=== PATIENT | male | born 1970 | race Caucasian/White ===

== ENCOUNTER 2021-09-29 10:45 | Day surgery (SDC) | payer MEDICARE ==
[2021-09-29] MEDS ORDERED: Marcaine Mpf 0.5% Vial 30 Ml IJ ONE (10:46)
[2021-09-29] MEDS ORDERED: XYLOCAINE-MPF 1% 5ML SDV IJ ONE (10:46)
[2021-09-29] MEDS ORDERED: Depo-Medrol 40 MG/ML IM ONE (10:46)
[2021-09-29] MEDS ORDERED: Lactated Ringers 1,000 ML IV ONE (12:37)
--- NOTE | 2021-09-29 13:16 | XRAY ---
Indication: Right hip injection. Intraoperative fluoroscopy provided for 23 seconds. Single digital spot image submitted for interpretation demonstrate needle tip lateral to the right femur neck. Small amount of contrast injected for needle tip placement. Correlate with intraoperative findings/report.
--- NOTE | 2021-09-29 15:25 | XRAY ---
23 seconds fluoroscopy time in surgery for intra-articular injection of the right hip.
== END 2021-09-29 12:55 | disposition home or self-care (01) ==
LOC: SDC-PAIN 10:45
PROVIDERS: ATTEND Psychiatry & Neurology Pain Medicine
DX: M16.11 Unilateral primary osteoarthritis, right hip (principal); E11.9 Type 2 diabetes mellitus without complications; Z79.899 Other long term (current) drug therapy
CPT/HCPCS: 20610; 73501; 77002; 82947; J1030; Q9966

== ENCOUNTER 2021-10-27 08:39 | Day surgery (SDC) | payer MEDICARE ==
[2021-10-27] MEDS ORDERED: Marcaine Mpf 0.5% Vial 30 Ml IJ ONE (08:40)
[2021-10-27] MEDS ORDERED: XYLOCAINE-MPF 1% 5ML SDV IJ ONE (08:40)
[2021-10-27] MEDS ORDERED: Depo-Medrol 40 MG/ML IM ONE (08:40)
--- NOTE | 2021-10-27 11:31 | XRAY ---
Indication: Right SI joint injection. Intraoperative fluoroscopy provided for 8 seconds. 2 digital spot image submitted for interpretation demonstrates posterior needle tip projecting over the inferior right SI joint. Correlate with intraoperative findings/report.
--- NOTE | 2021-10-27 14:09 | XRAY ---
8 seconds of fluoroscopy was used in surgery for a right SI joint injection.
== END 2021-10-27 09:55 | disposition home or self-care (01) ==
LOC: SDC-PAIN 08:39
PROVIDERS: ATTEND Psychiatry & Neurology Pain Medicine
DX: M46.1 Sacroiliitis, not elsewhere classified (principal); E11.9 Type 2 diabetes mellitus without complications; Z79.899 Other long term (current) drug therapy
CPT/HCPCS: 27096; 72170; 77002; 82947; G0260; J1030